=== PATIENT | male | born 1990 | race Caucasian/White ===

== ENCOUNTER 2017-01-13 21:44 | Emergency (ER) | payer OTHER ==
[~2017-01-13] VITALS: Ht 177.8 cm; Wt 78.0 kg
[2017-01-13 21:56] VITALS: BP 130/85; PULSE 98; RESP 20; TEMP 97; O2SAT 98
[2017-01-13] MEDS ORDERED: LIDOCAINE 1%/EPINEPHrine 1:100,000 SOLN 20 ML VIAL INFIL ONE (22:00)
[2017-01-13] MEDS ORDERED: TETANUS/DIPHTHERIA TOXOID ADULT 0.5 ML VIAL IM ONE (22:00)
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
== END 2017-01-13 22:53 | disposition home or self-care (01) ==
LOC: NEPD 21:44
DX: S61.411A Laceration without foreign body of right hand, initial encounter (principal); Z23 Encounter for immunization; W25.XXXA Contact with sharp glass, initial encounter; Y93.89 Activity, other specified; Y92.89 Other specified places as the place of occurrence of the external cause; Y99.0 Civilian activity done for income or pay
CPT/HCPCS: 12001; 90471; 90714; G0008

== ENCOUNTER 2017-01-25 14:16 | Emergency (ER) | payer OTHER ==
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
== END 2017-01-25 14:53 | disposition home or self-care (01) ==
LOC: NEPK 14:16
DX: Z48.01 Encounter for change or removal of surgical wound dressing (principal)
CPT/HCPCS: 99281